=== PATIENT | female | born 1995 | race Caucasian/White ===

== ENCOUNTER 2018-06-03 21:19 | Inpatient (IN) | payer BC ==
[2018-06-03] MEDS ORDERED: NS 1,000 ML IV ONE ×2 (21:40→22:10)
[2018-06-03 21:48] LABS: PLATELET COUNT 368 10^3/uL (150-400)
--- NOTE | 2018-06-03 21:58 | EDPHY ---
H & P Stated Complaint: N/V, weakness, fever, abd pain Time Seen by Provider: 06/03/18 21:57 HPI/ROS: HPI CHIEF COMPLAINT: Nausea vomiting, weakness, abdominal pain HISTORY OF PRESENT ILLNESS: 23-year-old female, otherwise healthy with no significant medical history she was recently in [place], and had a ruptured appendix on May 17 she required an operation. She had an ex laparotomy comma for ruptured appendix. She has been 10 days in the hospital from May 17 to May 27. She was discharged she spent a few more days and switched limb and then flew home with her father. Her father lives here in [place]. He has an flag football coach. He brought her to the emergency room tonight for fever T-max at home 101. Additionally increasing lower abdominal pain and abdominal swelling with associated nausea vomiting x1. She also complains of generalized weakness. Patient additionally complains of constipation. Past Medical History: Rupture appendix Past Surgical History: Ruptured appendix Social History: Denies drugs alcohol tobacco. Resides in [facility]. Family History: Noncontributory ROS REVIEW OF SYSTEMS: 10 Systems were reviewed and negative with the exception of the elements mentioned in the history of present illness. Exam Constitutional triage nursing summary reviewed, vital signs reviewed, awake/ alert. Eyes normal conjunctivae and sclera, EOMI, PERRLA. HENT normal inspection, atraumatic, moist mucus membranes, no epistaxis, neck supple/ no meningismus, no raccoon eyes. Respiratory clear to auscultation bilaterally, normal breath sounds, no respiratory distress, no wheezing. Cardiovascular rate normal, regular rhythm, no murmur, no edema, distal pulses normal. Gastrointestinal mildly tender in the lower abdomen not peritoneal, midline incision jesús in place, no pus, no significant cellulitis distended lower abdomen hypoactive bowel sounds, no rebound, no guarding, normal bowel sounds, no distension, no pulsatile mass. Genitourinary no CVA tenderness. Musculoskeletal no midline vertebral tenderness, full range of motion, no calf swelling, no tenderness of extremities, no meningismus, good pulses, neurovascularly intact. Skin pink, warm, & dry, no rash, skin atraumatic. Neurologic awake, alert and oriented x 3, AAOx3, moves all 4 extremities equally, motor intact, sensory intact, CN II-XII intact, normal cerebellar, normal vision, normal speech. Psychiatric normal mood/affect. Heme/Lymph/Immune no lymphadenopathy. Differential diagnosis includes but is not limited to and in no particular order : Intra-abdominal abscess, ileus, obstruction Bowel obstruction, gallbladder disease, diverticulitis, colitis, enteritis, perforated viscus, gastritis, GERD , esophagitis, urinary tract infection, pyelonephritis, kidney stones Medical Decision Making: Plan for this patient IV establishment with blood draw , check CBC, white count, lactic acid, urinalysis, test, low threshold for CT scan abdomen pelvis with IV contrast. Re-evaluation: CT abdomen pelvis with IV contrast this shows multiple intra-abdominal abscess. 3 cm right lower quadrant surrounding ileus. Called to me by Dr. Rachid Cosby. Will consult surgery. [id number] Source: Patient - Personal History LMP (Females 10-55): 15-21 Days Ago Current Tetanus/Diphtheria Vaccine: Yes - Medical/Surgical History Hx Asthma: No Hx Chronic Respiratory Disease: No Hx Diabetes: No Hx Cardiac Disease: No Hx Renal Disease: No Hx Cirrhosis: No Hx Alcoholism: No Hx HIV/AIDS: No Hx Splenectomy or Spleen Trauma: No Other PMH: appy, - Social History Smoking Status: Never smoked Constitutional: Initial Vital Signs Temperature (C) 37.3 C 06/03/18 21:22 Heart Rate 129 H 06/03/18 21:22 Respiratory Rate 16 06/03/18 21:22 Blood Pressure 103/63 06/03/18 21:22 O2 Sat (%) 93 06/03/18 21:22 O2 Delivery Mode Room Air O2 (L/minute) 2 Allergies/Adverse Reactions: No Known Allergies Allergy (Verified 06/04/18 08:23) Home Medications: Medication Instructions Recorded Acetaminophen [Tylenol ES 500 mg 1,000 mg PO Q8H PRN 06/04/18 (*)] Esomeprazole Magnesium [Nexium 20 mg PO DAILY PRN 06/04/18 24Hr] Metoclopramide [Reglan 10 mg tab 10 mg PO Q6H PRN 06/04/18 (*)] Medical Decision Making - Data Points Laboratory Results: Laboratory Results 06/03/18 21:38 06/03/18 21:38 Medications Given: Acetaminophen (Tylenol) 1,000 mg PO Q8H JARRED Stop: 11/30/18 23:44 Last Admin: 06/04/18 22:04 Dose: 1,000 mg Enoxaparin Sodium (Lovenox) 40 mg SC DAILY JARRED Stop: 12/01/18 08:59 Last Admin: 06/04/18 09:05 Dose: 40 mg Hydromorphone HCl (Dilaudid) 0.2 - 0.4 mg IVP Q1HR PRN PRN Reason: Pain, Breakthrough Stop: 06/13/18 23:43 Last Admin: 06/04/18 05:43 Dose: 0.4 mg Potassium Chloride/Dextrose/Sod Cl (D5w 1/2 Ns W/ 20 Kcl/L) 1,000 mls @ 100 mls /hr IV CONT JARRED Stop: 11/30/18 23:44 Last Admin: 06/04/18 15:40 Dose: 1,000 mls Ertapenem 1 gm/ Sodium (Chloride) 100 mls @ 200 mls/hr IV DAILY JARRED PRN Reason: Protocol Stop: 07/04/18 16:59 Last Admin: 06/04/18 16:16 Dose: 100 mls Ketorolac Tromethamine (Toradol) 30 mg IVP Q6HRS JARRED Stop: 06/09/18 00:00 Last Admin: 06/04/18 23:34 Dose: 30 mg Metoclopramide HCl (Reglan Injection) 10 mg IVP Q8H JARRED Stop: 11/30/18 23:44 Last Admin: 06/04/18 23:34 Dose: 10 mg Pantoprazole Sodium (Protonix) 40 mg IVP DAILY JARRED Stop: 11/30/18 23:44 Last Admin: 06/04/18 09:07 Dose: 40 mg Trazodone HCl (Trazodone) 50 mg PO HS JARRED Stop: 12/01/18 23:29 Last Admin: 06/04/18 23:35 Dose: 50 mg Discontinued Medications Hydromorphone HCl (Dilaudid) 0.5 mg IVP EDNOW ONE Stop: 06/03/18 22:11 Last Admin: 06/03/18 22:40 Dose: 0.5 mg Sodium Chloride (Ns) 1,000 mls @ 0 mls/hr IV ONCE ONE; Wide Open PRN Reason: Protocol Stop: 06/03/18 21:41 Last Admin: 06/03/18 21:30 Dose: 1,000 mls Sodium Chloride (Ns) 1,000 mls @ 0 mls/hr IV ONCE ONE PRN Reason: Wide Open Stop: 06/03/18 22:11 Last Admin: 06/03/18 22:40 Dose: 1,000 mls Ertapenem 1 gm/ Sodium (Chloride) 100 mls @ 200 mls/hr IV EDNOW ONE PRN Reason: Protocol Stop: 06/03/18 22:39 Last Admin: 06/03/18 22:50 Dose: 100 mls Ondansetron HCl (Zofran) 4 mg IVP EDNOW ONE Stop: 06/03/18 22:11 Last Admin: 06/03/18 22:40 Dose: 4 mg Ondansetron HCl (Zofran) 4 mg IVP Q4HRS PRN PRN Reason: *Nausea &/or Vomiting Stop: 06/04/18 23:43 Last Admin: 06/04/18 03:31 Dose: 4 mg Departure - Departure Disposition: [facility] Inpatient Acute Clinical Impression: Intra-abdominal abscess Condition: Serious
[2018-06-03] MEDS ORDERED: HYDROmorphONE/DILAUDID 2 MG/ML INJ IVP ONE (22:10)
[2018-06-03] MEDS ORDERED: ONDANSETRON 4 MG/2 ML VIAL IVP ONE (22:10)
[2018-06-03] MEDS ORDERED: ERTAPENEM 1 GM in NS 100 ML IV ONE (22:10)
[2018-06-03] MEDS ORDERED: IOPAMIDOL (ISOVUE-300) 100 ML BTL ONE (22:18)
[2018-06-03] MEDS ORDERED: ONDANSETRON 4 MG/2 ML VIAL IVP PRN (23:44)
[2018-06-04] MEDS: KETOROLAC 30 MG/1 ML SDV IVP SCH ×5 (00:10→23:34)
[2018-06-04] MEDS: PANTOPRAZOLE SODIUM 40 MG VIAL IVP SCH ×2 (00:13→09:07)
--- NOTE | 2018-06-04 01:00 | GHP ---
DATE OF ADMISSION: 06/03/2018 Kole Reynolds is a 23-year-old white female who had the onset of abdominal pain on May 13. This was associated with diarrhea and nausea. She was in [facility] in [facility] at the time. Four days later, she went to see a physician who immediately transferred her to a hospital in an adjacent city. On that day they took her to surgery for a ruptured appendix. Apparently, she had an exploratory laparotomy and abdominal washout for generalized peritonitis , as well as her appendectomy. She was on 7 days of antibiotics, which appears to be Zosyn. She has been transitioned to 3 days of oral antibiotics which I believe was Augmentin, but the notes are in Greenlandic. She then left the hospital without oral antibiotics. She came home on the . Today, she had a temperature to 101. Her last meal was at 2 to 3 p.m. and she was only plus- minus hungry. Note is made she has lost 13 pounds since May 13. She was seen in the ER by Dr. Abhinav Goff. Her heart rate at that point was 129. She was volume resuscitated and underwent CAT scanning which showed 2 intraabdominal abscesses, 1 measuring 2.6 x 2.3, the other measuring 3.7 x 2.7. Her white count was 26,500, with 85% neutrophils. Her hematocrit was 36 and her platelet count was 368. Beta HCG was negative. Her lactate was 0.8. She did have renal enhancement and a UA is pending. I was asked to see her and admit her for intraabdominal sepsis. There is no easy way to percutaneously drain the abscesses. SOCIAL HISTORY: She does not smoke. She has not had any alcohol for several weeks now. ALLERGIES: She has no known drug allergies. MEDICATIONS: She was dismissed on Reglan, Prilosec, and Tylenol and a Tylenol like medication for pain control. PAST SURGICAL HISTORY: Her only surgery has been wisdom tooth extraction. There is no history of rheumatic fever, tuberculosis, hepatitis, or transfusions. REVIEW OF SYSTEMS: Negative. There are no limits on her activities. No history of steroid use. FAMILY HISTORY: Her parents are . Her mother is 61. Her father is 60 , both are healthy. She has an older brother who is 27, who is healthy as well. There are no bleeding disorders, clotting disorders, difficulty with anesthesia. PHYSICAL EXAMINATION: VITAL SIGNS: Her blood pressure currently is 105/73, heart rate 99, temperature is 36.9. Blood cultures have been drawn. GENERAL: She is awake, alert, oriented, pleasant. NEUROLOGIC: There are no focal lateralizing findings. LYMPHATIC: There is no cervical, supraclavicular, axillary or inguinal lymphadenopathy. HEAD: Skull is normocephalic and atraumatic. NECK: There are no carotid bruits. Thyroid is not enlarged. BACK: Unremarkable. LUNGS: Clear to auscultation. CARDIAC: S1, S2 to be normal. No split of S2 without murmurs, rubs, or gallops. ABDOMEN: Shows a midline incision which has minimal serous seepage at its inferior border. There are hypoactive bowel sounds present. EXTREMITIES: Otherwise unremarkable. IMPRESSION: Patient with 2 intraabdominal abscesses. PLAN: To admit her for IV antibiotic therapy. As she has had 2 CT scans, further scanning may be done with MRI or sonography. Her nutrition level is poor with a total lymphocyte count of 1000. Her pre-albumin is pending. Because of her history of intraabdominal infection and travel, I will get a duplex scan to rule out DVT. In the meantime, she will be placed on low- molecular weight heparin and SCDs. Her CAT scan did show slight enhancement of the kidneys consistent with a nephritis, infection, or infarct. UA is pending to help sort that issue out. In reading through the notes from [facility], I believe she may have had a mild episode of pancreatitis, but we have to await Greenlandic translation for confirmation of that. In the short term, stabilization, supportive care with nutritional therapy and antibiotics is in order. She may need to be explored in the future. /[id number]/MODL MTDD
[2018-06-04] MEDS: ACETAMINOPHEN 500 MG TAB PO SCH ×5 (01:26→22:04)
[2018-06-04] MEDS: METOCLOPRAMIDE 10 MG/2 ML VIAL IVP SCH ×4 (01:27→23:34)
[2018-06-04] MEDS: HYDROmorphONE/DILAUDID 1 MG/ML INJ IVP PRN ×2 (03:27→05:43)
[2018-06-04] MEDS: D5W 1/2 NS W/ 20 KCl/L 1,000 ML IV SCH ×2 (03:31→15:40)
[2018-06-04 04:42] LABS: PLATELET COUNT 304 10^3/uL (150-400)
[2018-06-04] MEDS: ENOXAPARIN 40 MG/0.4 ML SYR SC SCH (09:05)
--- NOTE | 2018-06-04 09:10 | SOAPPROG ---
<KaplanYadira - Last Filed: 06/04/18 09:02> SOAP Progress Note Assessment/Plan: Assessment/Plan: 23 Y F s/p laparotomy for ruptured appendicitis in [place] , now abdominal abscesses x 2, non-amenable to percutaneous drainage. On IV abx. Abscesses. Continue IV abx. If fails abx therapy would need surgical drainage and washout. Will eventually need repeat CT--pending course as in or outpatient. Superficial wound dehiscence. Clean. +granulation. Remove most inferior two jesús--not helping. No need for packing. Continue protective dressing. Renal enhancement on CT. Reviewed reports, will review images. UA c 3-5 WBCs. No dysuria. Could be 2/2 adjacent inflammation and infection. Dr. Spain to see patient today as well. S: feeling better already compared to condition upon admit. nausea and pain improved. O: alert, nad, grossly nontoxic appearing. ctab rrr abd +BS, soft, rlq and ruq tenderness without rebound or guarding. incisional tenderness seems appropriate 06/04/18 09:02 Objective: Vital Signs Temp Pulse Resp BP Pulse Ox 38.1 C 102 H 15 105/58 L 98 06/04/18 08:00 06/04/18 08:00 06/04/18 08:00 06/04/18 08:00 06/04/18 08:00 Laboratory Results 06/04/18 03:30 06/04/18 03:30 06/03/18 06/04/18 06/05/18 05:59 05:59 05:59 Intake Total 19995 Balance 1999 615 ICD10 Worksheet Patient Problems: Problems Problem Status Onset Appendiceal abscess Acute Intra-abdominal abscess Acute <Floyd Spain - Last Filed: 06/05/18 07:46> SOAP Progress Note Assessment/Plan: Assessment: Plan: Objective: Vital Signs Temp Pulse Resp BP Pulse Ox 36.7 C 94 16 102/54 L 95 06/04/18 23:49 06/04/18 23:49 06/04/18 23:49 06/04/18 23:49 06/04/18 23:49 Laboratory Results 06/04/18 03:30 06/04/18 03:30 06/03/18 06/04/18 06/05/18 05:59 05:59 05:59 Intake Total 2000 1295 Balance 2000 1295 ICD10 Worksheet - ICD10 Problem Qualifiers (1) Appendiceal abscess
--- NOTE | 2018-06-04 10:26 | PDMN ---
Medical Necessity Medical [place] [facility] [place] Seps[place] and Other Febrile Illness, w/o Focal Infection and MGSIC Systemic or Infectious Condition GR23 y/o w/ intra- abdominal abscess x2 and sepsis, possible pancreatitis, s/p lap for ruptured appy in [facility]. Tachycardic 110's to 120s, WBC 26.51, BC pending, NPO status, IV fluids, IV antibx and IV opioids required. Surgical consult: unable to percutaneously drain abscess. Contine IV antibx, if fails, will need surgical drainage and washout. Anticipate>2MN for cont treatment and monitoring.
--- NOTE | 2018-06-04 15:15 | ASMTCMCOM ---
CM Note CM Note Notes: 23yr old female had been in [place] when she suffered a ruptured appy. Has been on IV ABX but may need surgical drainage and washout. Lives with her father in [place]. CM to follow for discharge needs. Date Signed: 06/04/2018 03:08 PM Electronically Signed By:Karen Boo LCSW
[2018-06-04] MEDS: ERTAPENEM 1 GM in NS 100 ML IV SCH (16:16)
--- NOTE | 2018-06-04 18:12 | SOAPPROG ---
SOAP Progress Note Assessment/Plan: Assessment: SEEN MY PA CARLITO PIMENTEL TODAY/PLEASE REFER TO HER NOTE 23-YEAR-OLD FEMALE WITH PERFORATED APPENDICITIS THE 2 AND HALF WEEKS AGO WHO NOW PRESENTS WITH MID ABDOMINAL POSSIBLE ABSCESS ABDOMEN IS SOFT, NOT PARTICULARLY TENDER WITH SOME BOWEL SOUNDS/WOUND IS HEALING WELL/AFEBRILE Plan: OBSERVATION ON ANTIBIOTICS/ FOLLOW-UP CT SCAN IN 2-3 DAYS/ SURGICAL DRAINAGE IF WORSENING SYMPTOMS 06/04/18 18:10 Objective: Vital Signs Temp Pulse Resp BP Pulse Ox 36.9 C 76 16 97/61 L 97 06/04/18 15:59 06/04/18 15:59 06/04/18 15:59 06/04/18 15:59 06/04/18 15:59 Laboratory Results 06/04/18 03:30 06/04/18 03:30 06/03/18 06/04/18 06/05/18 05:59 05:59 05:59 Intake Total 1999 1295 Balance 1999 1295 ICD10 Worksheet Patient Problems: Problems Problem Status Onset Appendiceal abscess Acute - ICD10 Problem Qualifiers (1) Appendiceal abscess
--- NOTE | 2018-06-04 19:10 | GCON ---
DATE OF CONSULTATION: 06/04/2018 A 23-year-old female who is seen in consultation because of a periappendiceal abscess developing. Sh true had a perforated appendix 2-1/2 weeks ago in [facility]. She was treated with surgery and drainag e of the area. She, however, presented here with a fever and abdominal pain. Was found to have an e catrina vague area in her abdomen consistent with a recurrent abscess. She is admitted at this time, an d will be placed on IV antibiotics, for observation. I was consulted for that evaluation. ALLERGIES: None. MEDICATIONS: Include Prilosec and Reglan. PAST MEDICAL HISTORY: Includes wisdom teeth extraction. No other major medical problems or hospital izations. REVIEW OF SYSTEMS: Negative on a full 10-point review of systems except as related to the HPI. SOCIAL HISTORY: Reveals she does not smoke. FAMILY HISTORY: Noncontributory. PHYSICAL EXAMINATION: GENERAL: Reveals an alert, healthy, 23-year-old female in no acute distress. HEAD AND NECK: Reveals no icterus or adenopathy or oral lesions. CHEST: Clear. CARDIAC: Reveals regular rhythm. ABDOMEN: Soft. She is minimally tender in the right lower quadrant. There is a w ell-healing abdominal incision. EXTREMITIES: Benign with full pulses, full range of motion. NEUROL OGIC: Physiologic and symmetric. PSYCH: Reveals her to be alert, oriented, and cooperative. IMPRESSION: Possible early appendiceal abscess. PLAN: Observation and IV antibiotics. Surgical drainage if it becomes more clear-cut and unresolved with antibiotic therapy. Risks and options have been fully discussed with the patient and her urban [place] #: [id number]/RADHAL
[2018-06-04] MEDS: traZODone 50 MG TAB PO SCH (23:35)
[2018-06-05 05:30] LABS: PLATELET COUNT 258 10^3/uL (150-400)
[2018-06-05] MEDS: ACETAMINOPHEN 500 MG TAB PO SCH ×2 (07:47→16:14)
[2018-06-05] MEDS: METOCLOPRAMIDE 10 MG/2 ML VIAL IVP SCH ×2 (07:47→16:15)
[2018-06-05] MEDS: KETOROLAC 30 MG/1 ML SDV IVP SCH ×3 (07:48→18:41)
--- NOTE | 2018-06-05 08:51 | SOAPPROG ---
SOBEATRIZ Progress Note Assessment/Plan: Assessment/Plan: 23 Y F s/p laparotomy for ruptured appendicitis in [facility] , now abdominal abscesses x 2, non-amenable to percutaneous drainage. On IV abx. Abscesses. Appears to be responding to iv abx. WBC down to 10 today. Will need repeat CT scan, either here in the hospital or as an outpatient. Superficial wound dehiscence. Continuing to heal. Can take out inferior jesús. Renal enhancement on CT. Urine output adequate. S: Didn't sleep much last night. Still having incisional tenderness. Denies dysuria. Tolerating sips of clears. Passing gas and had BM. O: Alert Afebrile RRR No increased WOB Abdomen: soft, mildly ttp, +BS, incision with superficial dehiscence is clean with granulation tissue throughout. Jesús intact. 06/05/18 08:44 Objective: Vital Signs Temp Pulse Resp BP Pulse Ox 36.7 C 94 16 102/54 L 95 06/04/18 23:49 06/04/18 23:49 06/04/18 23:49 06/04/18 23:49 06/04/18 23:49 Laboratory Results 06/05/18 05:00 06/04/18 03:30 06/04/18 06/05/18 06/06/18 05:59 05:59 05:59 Intake Total 1999 2333 Balance 1999 2333 ICD10 Worksheet Patient Problems: Problems Problem Status Onset Appendiceal abscess Acute Intra-abdominal abscess Acute
[2018-06-05] MEDS: PANTOPRAZOLE SODIUM 40 MG VIAL IVP SCH (09:17)
[2018-06-05] MEDS: ERTAPENEM 1 GM in NS 100 ML IV SCH (09:20)
[2018-06-05] MEDS: ENOXAPARIN 40 MG/0.4 ML SYR SC SCH (09:20)
[2018-06-05] MEDS: D5W 1/2 NS W/ 20 KCl/L 1,000 ML IV SCH (10:08)
--- NOTE | 2018-06-05 11:24 | PDCONSULT ---
[employer] Operator Note: INFECTIOUS DISEASE CONSULTATION A/P 23 you woman with perforated appy and peritonitis [place]p [place]out [place] who presents with fever, recurrent abdominal pain and is found to have 2 moderate sized pelvic abscesses that cannot be drained by IR and mesenteric inflammation. Still with fair amount RLQ pain but no rebound. Blood cx negative to date. Micro data from [place] medical records state E coli and streptococcus intermedius. With antibiotic therapy, abdominal pain has improved and marked improvement in leukocytosis. --Discussed there is still a chance she will need surgical debridement. --reasonable to continue medical therapy. Due to nausea and likely bowel dysfunction will continue with IV ertapenem as outpatient if she continues to improve through tomorrow --discussed risks and benefits of PICC line --discussed typical GI noemy covered with ertapenem including ESBL but still gap in coverage with PsA and enterococcus --timing of repeat CT still under consideration Chief complaint: medical management abscess MD requested consult: Donn Spain MD History of present illness: 23 y/o F presents for evaluation RLQ abscess x2 that began around the 13 of May with abd pain. Initially she thought it was food poisoning as she was traveling in [place] at the time. Subsequently, had associated vomiting, difficulty standing upright and walking, and s/p 4 days of these sx persisting, was seen by a physician in [facility]. While in [facility] had an abd- ultrasound showed appendicitis. She was then transferred to [facility] and intraop was found to have perforated appy and 4 quadrant peritonitis. Was hospitalized in [facility] for 7 days and administered IV Zosyn. Also, given about 3 days of oral Augmentin but discharged off antibiotics. Pt returned to [facility] on , was feeling better, and eating a regular diet. She came to [place] to convalesce under her father's care who is an vision rehabilitation therapist. She was feeling okay the first couple of days but developed malaise and R flank pain 06/01/18. On Sunday, her abd pain worsened, felt weak, and had difficulty walking again due to abdominal pain. She developed a fever of 101F with associated vomiting and presented to the ER for evaluation. Here, at [facility] she had a CT-abd scan showing pelvic abscesses x2 (2.6cm and 3.7cm ) which could not be drained by IR and mesenteric inflammation. She was admitted and started on empiric therapy with Ertapenem and abdominal symptoms improved and WBC improved- was 26K , today at 10K. Fever has resolved. She remains on IV ertapenem. Denies associated itching, rash, or diarrhea from abx. Pt has no new complaints. PMHx: none SHx: [place] teeth extraction and appy as above Family hx: Grandfather with mild-OK at 62 and lived 23 yrs s/p incident. No cancer on either side of family. Social hx: Pt currently lives in [place], [place]. Mother lives in [place], [place]. Father lives here in [place]. Denies tobacco, ETOH, or illicit drug use. 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 Allergies: 3 Allergy/AdvReac Type Severity Reaction Status Date / Time No Known Allergies Allergy Verified 06/04/18 08:23 Medications: 3 Generic Name Dose Route Start Last Admin Trade Name Freq PRN Reason Stop Dose Admin Acetaminophen 1,000 mg 06/03/18 23:45 06/05/18 07:47 Tylenol PO 11/30/18 23:44 1,000 mg Q8H JARRED Administration Enoxaparin Sodium 40 mg 06/04/18 09:00 06/05/18 09:20 Lovenox SC 12/01/18 08:59 40 mg DAILY JARRED Administration Hydromorphone HCl 0.2 - 0.4 mg 06/03/18 23:44 06/04/18 05:43 Dilaudid IVP 06/13/18 23:43 0.4 mg Q1HR PRN Administration Pain, Breakthrough Potassium Chloride/Dextrose/Sod Cl 1,000 mls @ 100 mls/hr 06/03/18 23:45 02/15 10:08 D5w 1/2 Ns W/ 20 Kcl/L IV 11/30/18 23:44 1,000 mls CONT JARRED Administration Ertapenem 1 gm/ Sodium 100 mls @ 200 mls/hr 06/04/18 17:00 06/05/18 09:20 Chloride IV 07/04/18 16:59 100 mls DAILY JARRED Administration Protocol Ketorolac Tromethamine 30 mg 06/04/18 00:00 06/05/18 07:48 Toradol IVP 06/09/18 00:00 30 mg Q6HRS JARRED Administration Metoclopramide HCl 10 mg 06/03/18 23:45 06/05/18 07:47 Reglan Injection IVP 11/30/18 23:44 10 mg Q8H JARRED Administration Pantoprazole Sodium 40 mg 06/03/18 23:45 06/05/18 09:17 Protonix IVP 11/30/18 23:44 40 mg DAILY JARRED Administration Trazodone HCl 50 mg 06/04/18 23:30 06/04/18 23:35 Trazodone PO 12/01/18 23:29 50 mg HS JARRED Administration ROS: 10 systems were reviewed and negative with the exception fo the elements mentioned in the history of present illness. Does admit about a 13 lb weight loss since sx onset on 05/13/2018. Vitals: 3 Temp Pulse Resp BP Pulse Ox 37.1 C 90 16 105/53 L 96 06/05/18 08:00 06/05/18 08:00 06/04/18 23:49 06/05/18 08:00 06/05/18 08:00 Physical exam: General: Well-nourished, well-developed in no acute distress. Appears nontoxic. HEENT: No scleral icterus, conjunctival injection. Oropharynx shows moist mucous membranes with no thrush or oral ulcerations. Chest: Clear to auscultation bilaterally without adventitious sounds. Respiratory effort is normal. Cardiovascular: Regular rate rhythm without murmurs, gallops or rubs. Abdomen: Midline incision from umbilicus to suprapubic region, superficial dehiscence distally, a few jesús presents. Surgical sites are healing well without erythema or purulent drainage. Soft, LLQ point tenderness to palpation, abd guarding, abd distention, and bowel sounds present. Musculoskeletal: R leg lift performed without difficulty. L leg lift performed without difficulty. Some difficulty resisting R-leg downward force, noting that her abdominal muscles feel weak. No cyanosis, clubbing or edema. Back: No bilateral flank tenderness. Skin: No rashes present. No stigmata of endocarditis. Neuro: Alert and oriented. Moving all 4 extremities. Laboratory Results: 3 WBC 10.71 10^3/uL (3.80-9.50) H 06/05/18 05:00 RBC 3.34 10^6/uL (4.18-5.33) L 06/05/18 05:00 Hgb 10.1 g/dL (12.6-16.3) L 06/05/18 05:00 Hct 30.9 % (38.0-47.0) L 06/05/18 05:00 MCV 92.5 fL (81.5-99.8) 06/05/18 05:00 MCH 30.2 pg (27.9-34.1) 06/05/18 05:00 MCHC 32.7 g/dL (32.4-36.7) 06/05/18 05:00 RDW 14.7 % (11.5-15.2) 06/05/18 05:00 Plt Count 258 10^3/uL (150-400) 06/05/18 05:00 MPV 10.4 fL (8.7-11.7) 06/05/18 05:00 Neut % (Auto) 75.7 % (39.3-74.2) H 06/05/18 05:00 Lymph % (Auto) 13.8 % (15.0-45.0) L 06/05/18 05:00 [place] % (Auto) 8.8 % (4.5-13.0) 06/05/18 05:00 Eos % (Auto) 0.7 % (0.6-7.6) 06/05/18 05:00 Baso % (Auto) 0.5 % (0.3-1.7) 06/05/18 05:00 Nucleat RBC Rel Count 0.0 % (0.0-0.2) 06/05/18 05:00 Absolute Neuts (auto) 8.12 10^3/uL (1.70-6.50) H 06/05/18 05:00 Absolute Lymphs (auto) 1.48 10^3/uL (1.00-3.00) 06/05/18 05:00 Absolute Monos (auto) 0.94 10^3/uL (0.30-0.80) H 06/05/18 05:00 Absolute Eos (auto) 0.07 10^3/uL (0.03-0.40) 06/05/18 05:00 Absolute Basos (auto) 0.05 10^3/uL (0.02-0.10) 06/05/18 05:00 Absolute Nucleated RBC 0.00 10^3/uL (0-0.01) 06/05/18 05:00 Immature Gran % 0.5 % (0.0-1.1) 06/05/18 05:00 Immature Gran # 0.05 10^3/uL (0.00-0.10) 06/05/18 05:00 RBC/WBC/PLT Morphology TNP 06/04/18 03:30 Platelet Estimate TNP 06/04/18 03:30 VBG Lactic Acid 0.8 mmol/L (0.7-2.1) 06/03/18 21:38 Sodium 138 mEq/L (135-145) 06/04/18 03:30 Potassium 4.1 mEq/L (3.3-5.0) 06/04/18 03:30 Chloride 106 mEq/L (97-110) 06/04/18 03:30 Carbon Dioxide 23 mEq/l (22-31) 06/04/18 03:30 Anion Gap 9 mEq/L (8-16) 06/04/18 03:30 BUN 3 mg/dL (7-23) L 06/04/18 03:30 Creatinine 0.4 mg/dL (0.6-1.0) L 06/04/18 03:30 Estimated GFR > 60 06/04/18 03:30 Glucose 127 mg/dL (70-100) H 06/04/18 03:30 Calcium 8.3 mg/dL (8.5-10.4) L 06/04/18 03:30 Total Bilirubin 0.5 mg/dL (0.1-1.4) 06/04/18 03:30 AST 11 IU/L (14-46) L 06/04/18 03:30 ALT 30 IU/L (9-52) 06/04/18 03:30 Alkaline Phosphatase 85 IU/L (38-126) 06/04/18 03:30 Total Protein 5.9 g/dL (6.3-8.2) L 06/04/18 03:30 Albumin 2.8 g/dL (3.5-5.0) L 06/04/18 03:30 Prealbumin 13.1 mg/dL (17.6-36.0) L 06/04/18 03:30 Lipase 150 IU/L (23-300) 06/04/18 03:30 Beta HCG, Qual NEGATIVE 06/03/18 21:36 Urine Color PALE YELLOW 06/03/18 23:50 Urine Appearance CLEAR 06/03/18 23:50 Urine pH 5.0 (5.0-7.5) 06/03/18 23:50 Ur Specific [place] > 1.035 (1.002-1.030) H 06/03/18 23:50 Urine Protein NEGATIVE (NEGATIVE) 06/03/18 23:50 Urine Ketones NEGATIVE (NEGATIVE) 06/03/18 23:50 Urine Blood NEGATIVE (NEGATIVE) 06/03/18 23:50 Urine Nitrate NEGATIVE (NEGATIVE) 06/03/18 23:50 Urine Bilirubin NEGATIVE (NEGATIVE) 06/03/18 23:50 Urine Urobilinogen NEGATIVE EU (0.2-1.0) 06/03/18 23:50 Ur Leukocyte Esterase NEGATIVE (NEGATIVE) 06/03/18 23:50 Urine RBC 1-3 /hpf (0-3) 06/03/18 23:50 Urine WBC 3-5 /hpf (0-3) H 06/03/18 23:50 Ur Epithelial Cells TRACE /lpf (NONE-1+) 06/03/18 23:50 Urine Glucose NEGATIVE (NEGATIVE) 06/03/18 23:50 Microbiology 06/03/18 22:50 Blood Cx (2) NGTD CT scan as per HPI Scribe attestation: I, Denice Eric, am scribing for, and in the presence of, Sherin Jackson MD. ISherin MD, personally performed the services described in this documentation, as scribed by Denice Eric in my presence, and it is both accurate and complete. Thank you for this consultation. Greater than 75 minutes spent on this patients care, greater than 50% of time spent counseling, educating, and coordinating care regarding the above mentioned plan.
[2018-06-05] MEDS ORDERED: ALTEPLASE 2 MG VIAL IVP PRN (12:02)
--- NOTE | 2018-06-05 12:04 | PDIAF ---
- Diagnosis Diagnosis: Abdominal abscess Code Status: Full Code - Medication Management Discharge Medications: Medications to Continue on Transfer Acetaminophen [Tylenol ES 500 mg (*)] 1,000 mg PO Q8H PRN 06/04/18 [Last Taken Unknown] Esomeprazole Magnesium [Nexium 24Hr] 20 mg PO DAILY PRN 06/04/18 [Last Taken Unknown] Metoclopramide [Reglan 10 mg tab (*)] 10 mg PO Q6H PRN 06/04/18 [Last Taken Unknown] Chcf Antibiotics: ertapenem 1gm IV daily Chcf Antibiotic Stop Date: 06/19/18 Discharge Medications: Refer to the Discharge Home Medication list for PRN reason. PICC Care - Routine: Yes - Labs/Radiology CBC w/diff Date: 06/10/18 (weekly sunday) CMP Date: 06/10/18 (weekly sunday) Call or Fax Lab and Imaging Results to: Dr. Sherin Jackson - Follow Up Care Current Providers and Referrals: NONE *PRIMARY CARE P,. [Primary Care Provider] - As per Instructions Sherin Jackson MD [Medical Doctor] - follow up in 1 week
--- NOTE | 2018-06-05 15:18 | PDIAF ---
- Diagnosis Diagnosis: Abdominal abscess Code Status: Full Code - Medication Management Discharge Medications: Medications to Continue on Transfer Acetaminophen [Tylenol ES 500 mg (*)] 1,000 mg PO Q8H PRN 06/04/18 [Last Taken Unknown] Esomeprazole Magnesium [Nexium 24Hr] 20 mg PO DAILY PRN 06/04/18 [Last Taken Unknown] Metoclopramide [Reglan 10 mg tab (*)] 10 mg PO Q6H PRN 06/04/18 [Last Taken Unknown] Longterm Antibiotics: ertapenem 1gm IV daily Longterm Antibiotic Stop Date: 06/19/18 Discharge Medications: Refer to the Discharge Home Medication list for PRN reason. PICC Care - Routine: Yes - Labs/Radiology CBC w/diff Date: 06/10/18 (weekly sunday) CMP Date: 06/10/18 (weekly sunday) Call or Fax Lab and Imaging Results to: Dr. Sherin Jackson - Follow Up Care Current Providers and Referrals: Sherin Jackson MD [Medical Doctor] - 06/13/18 10:00 am NONE *PRIMARY CARE P,. [Primary Care Provider] - As per Instructions
[2018-06-05] MEDS: LORazepam 1 MG TAB PO PRN (21:07)
[2018-06-05] MEDS: traZODone 50 MG TAB PO SCH (22:37)
[2018-06-06] MEDS: METOCLOPRAMIDE 10 MG/2 ML VIAL IVP SCH ×2 (00:37→08:21)
[2018-06-06] MEDS: ACETAMINOPHEN 500 MG TAB PO SCH ×2 (00:38→08:20)
[2018-06-06] MEDS: KETOROLAC 30 MG/1 ML SDV IVP SCH ×3 (00:38→11:11)
[2018-06-06 05:56] LABS: PLATELET COUNT 285 10^3/uL (150-400)
--- NOTE | 2018-06-06 08:09 | SOAPPROG ---
HERMILA Progress Note Assessment/Plan: Assessment/Plan: 23 Y F s/p laparotomy for ruptured appendicitis in [facility] , now abdominal abscesses x 2, non-amenable to percutaneous drainage. On IV abx. Abscesses. Appears to be responding to iv abx. WBC down to 7 today. Will need repeat CT scan as outpt. Advance diet today. Can go today or tomorrow. Will d/w Spain. Continue iv abx as outpt through [facility]. Superficial wound dehiscence. Continuing to heal. Can take out inferior jesús. Renal enhancement on CT. Urine output adequate. S: Continuing to improve. Still complaining of incisional pain, but no other abdominal pain. Passing gas and having BMs. Did have some BRBPR with BM yesterday. Reports that this has happened before, likely hemorrhoids. O: Alert Afebrile RRR No increased WOB Abdomen: soft, mildly ttp, +BS, incision with superficial dehiscence is clean with granulation tissue throughout. Jesús intact. 06/06/18 08:05 Objective: Vital Signs Temp Pulse Resp BP Pulse Ox 36.8 C 84 16 113/81 H 95 06/06/18 04:14 06/06/18 04:14 06/06/18 04:14 06/06/18 04:14 06/06/18 04:14 Laboratory Results 06/06/18 05:40 06/04/18 03:30 06/05/18 06/06/18 06/07/18 05:59 05:59 05:59 Intake Total 2333 1100 Balance 2333 1100 ICD10 Worksheet Patient Problems: Problems Problem Status Onset Appendiceal abscess Acute Intra-abdominal abscess Acute
[2018-06-06 08:18] VITALS: BP 118/88
[2018-06-06] MEDS ORDERED: PANTOPRAZOLE SODIUM 40 MG TAB PO SCH (09:00)
[2018-06-06] MEDS: ERTAPENEM 1 GM in NS 100 ML IV SCH (09:27)
--- NOTE | 2018-06-06 09:30 | PCMIDPN ---
Assessment/Plan: # Pelvic abscesses and mesenteric inflammation s/p perf appy. Discharge paperwork reported cx streptococcus and Ecoli, no sensi's given. Clinically better today. WBC has normalized --discuss timing of CT w surgery --DC ok from ID standpoint --f/u ID 06/13 at 10am # Mild swelling associated w R hand: elevated for now meds ertapenem 1gm IV daily #4 micro 06/03 Blood cx (2) NGTD Subjective: feeling better, ate scrambled eggs and toast this AM RLQ pain is better Mild R hand swelling Objective: Vital Signs Temp Pulse Resp BP Pulse Ox 37.0 C 94 16 118/88 H 96 06/06/18 08:00 06/06/18 08:00 06/06/18 08:00 06/06/18 08:00 06/06/18 08:00 Laboratory Results 06/06/18 05:40 06/04/18 03:30 06/05/18 06/06/18 06/07/18 05:59 05:59 05:59 Intake Total 2333 1100 Balance 2333 1100 - Physical Exam General Appearance: alert, no apparent distress EENT: pale conjunctiva Respiratory: No accessory muscle use Cardiac/Chest: regular rate, rhythm, systolic murmur Extremities: No pedal edema Abdomen: normal bowel sounds, non-tender, soft, other (distension improved), No guarding Skin: No rash Neuro/Psych: alert, normal mood/affect, oriented x 3 - Line/s RUE PICC Lines: No drainage, No erythema - Time Spent With Patient Time Spent with Patient: greater than 25 minutes Time Spent with Patient: Greater than 25 minutes spent on this patients care, greater than 50% of time spent counseling, educating, and coordinating care regarding the above mentioned plan. ICD10 Worksheet Patient Problems: Problems Problem Status Onset Appendiceal abscess Acute Intra-abdominal abscess Acute
--- NOTE | 2018-06-06 10:34 | ASDISCHSUM ---
Discharge Information Plan Status:Home with No Needs Medically Cleared to Leave: Discharge Date:06/06/2018 12:55 PM CM D/C Disposition:Home, Routine, Self-Care ADT D/C Disposition:Home, Routine, Self-Care Projected Discharge Date:06/06/2018 11:00 AM Transportation at D/C:Family Discharge Delay Reason: Follow-Up Date:06/06/2018 11:00 AM Discharge Slot: Final Diagnosis:Interabdominal abscess Placement Information Referral Type:Home Infusion Referral ID:[id number] Provider Name:[facility] Address 1:[address] Address 2: City:[place] Selection Factors: State:[place] Referral Type:*Home Health Care Services Referral ID:[id number] Provider Name: Address 1: Phone Number: Address 2: Fax Number: City: Selection Factors: State: Referral Type:Home Infusion Referral ID:[id number] Provider Name: Address 1: Phone Number: Address 2: Fax Number: City: Selection Factors: State: Patient Contact Information Contact Name:NICK Relationship: Address:[address] Work Phone: City:[facility] Phone: [facility]/Zip Code:[place] [address] Email: Financial Information Financial Class:BCOP Primary Plan Desc: OUT OF [facility] Primary Plan Number:[id number] Secondary Plan Desc: Secondary Plan Number: Assessment Information LACE LACE Length of stay for Answers: 2 days current admission Acuity / Level of Answers: Yes Care: Did the patient have an inpatient admission? # of Emergency department Answers: 1-2 visits in the last 6 months Score: 6 Date Signed: 06/06/2018 10:32 AM Electronically Signed By:Ngoc Tucker [facility] CM Progress Note CM Note CM Note Notes: 23yr old female had been in [place] when she suffered a ruptured appy. Has been on IV ABX but may need surgical drainage and washout. Lives with her father in [place]. CM to follow for discharge needs. Date Signed: 06/04/2018 03:08 PM Electronically Signed By:Karen Boo LCSW [facility] CM Progress Note CM Note CM Note Notes: Pt will be seen by melly tomorrow morning for antibiotic infusion. [facility] will provide both infusion and nursing. Following tomorrows appt [facility] will recommend no need for further nursing,a referral to a home health agency and/or out-pt infusion. CM to be in contact with Catherine from [facility] tomorrow. Date Signed: 06/06/2018 06:10 PM Electronically Signed By:Ngoc Tucker [facility] CM Progress Note CM Note CM Note Notes: Pt DC'd yesterday with need for IV ABX. Catherine from [facility] will provide ABX, supplies and RN visit. Pt and father will do their own IV ABX. [facility]. Date Signed: 06/07/2018 10:06 AM Electronically Signed By:Audrey Trevizo LCSW Intervention Information Intervention Type:*Incorrect Registration Date of Service:06/04/2018 08:52 AM Patient Type:Observation Staff Member:Clara Reyes Hours: Discipline: Severity: Comment:
[2018-06-06] MEDS: LORazepam 1 MG TAB PO PRN (11:11)
--- NOTE | 2018-06-06 18:11 | ASMTCMCOM ---
CM Note CM Note Notes: Pt will be seen by Kayla tomorrow morning for antibiotic infusion. [facility] will provide both infusion and nursing. Following tomorrows appt [facility] will recommend no need for further nursing,a referral to a home health agency and/or out-pt infusion. CM to be in contact with Catherine from [facility] tomorrow. Date Signed: 06/06/2018 06:10 PM Electronically Signed By:Ngoc Tucker
--- NOTE | 2018-06-07 10:07 | ASMTCMCOM ---
CM Note CM Note Notes: Pt DC'd yesterday with need for IV ABX. Catherine from [facility] will provide ABX, supplies and RN visit. Pt and father will do their own IV ABX. Pt will go to [facility] weekly for dressing changes. Date Signed: 06/07/2018 10:06 AM Electronically Signed By:Audrey Trevizo LCSW
--- NOTE | 2018-06-13 11:01 | GDS ---
DISCHARGE DIAGNOSIS: Appendiceal abscess. SPECIAL TESTS: Abdominal CT scan, as well as bilateral leg ultrasound. For full details, please see reports. CONSULTATIONS: General Surgery, by Dr. Eubanks and Dr. Spain. Infectious Disease, by Dr. Sherin Jackson. PROCEDURES: None. HOSPITAL COURSE: This is a 23-year-old female who was traveling with her family in [facility] when she developed a ruptured appendix, and ultimately had her appendix removed. She returned back to [facility] approximately 12 days later with her father. Once here, she began to develop a fever as well as abdominal pain and generalized weakness. She also had nausea and vomiting. A CT scan in the emergency department revealed a bilobed versus two adjacent fluid collections in the right lower quadrant, suggesting an abscess. Due to positioning, these are not amenable to percutaneous drainage. The CT also revealed heterogeneous renal enhancement, most likely related to pyelonephritis , or less likely subacute infarcts. She was seen by Dr. Eubanks, who recommended conservative management with IV hydration and IV antibiotics. Dr. Eubanks also ordered a duplex scan to rule out DVTs in her bilateral legs. These were negative for DVTs. She was placed on Lovenox and had SCDs placed. Given the renal enhancement on the CT scan, a urinalysis was ordered. Urinalysis revealed an increased urine specific gravity, as well as white blood cells; however, was negative for bacteria, nitrites, and blood. Dr. Sherin Jackson from Infectious Disease was consulted, who placed the patient on IV ertapenem, given E coli and Streptococcus intermedius on her cultures from her original surgery in [facility]. A PICC line was placed. Initially, the patient was on a clear liquid diet, which she tolerated well. Three days following admission, she was advanced to a regular diet, which she also tolerated well. Following daily IV antibiotics, the patient appeared to be responding well. Her white blood cell count came down into the normal range, and she was afebrile. She did experience a superficial wound dehiscence in the inferior aspect of her abdominal incision. This was treated with routine wound care. Ultimately, patient was discharged on June 06, home with home care, in good condition, with her parents. She was advised to follow-up for daily IV ertapenem infusions. She was passing gas and having bowel movements at this time. She was advised to follow up with both Dr. Spain and Dr. Jackson in their clinics. She was advised to have a repeat CT scan as an outpatient prior to these visits. She was advised to follow up with any fever, chills, or increased pain. Patient understood and was discharged home in good condition. For accurate medication list, please see NOV. /[id number]/MODL MTDD
== END 2018-06-06 12:55 | disposition home or self-care (01) | DRG 373 ==
LOC: OBSVTOIN 23:57 → F2N 06-04 00:48 → F1N 06-05 09:48
PROVIDERS: ADMIT Surgery; ATTEND Surgery
PROC: 02HV33Z Insertion of Infusion Device into Superior Vena Cava, Percutaneous Approach (ICD-10-PCS; principal; 2018-06-04)
DX: K65.1 Peritoneal abscess (principal)
CPT/HCPCS: 84134-90; 96365; C1751; J1170; J1335; J1650; J1885; J2405; J2765; Q9967

== ENCOUNTER → 2018-06-11 | Outpatient (CLI) | payer BC ==
[~2018-06-11] MED LIST: IOPAMIDOL (ISOVUE-300) 100 ML BTL ONE
== END ==
LOC: FIMAGING 15:28
PROVIDERS: ATTEND Surgery
DX: N73.9 Female pelvic inflammatory disease, unspecified (principal); R60.0 Localized edema
CPT/HCPCS: Q9967